=== PATIENT | female | born 1950 | race Caucasian/White ===

== ENCOUNTER 2017-04-09 05:50 | Outpatient (CLI) | payer MEDICARE ==
[~2017-04-09] VITALS: Ht 162.6 cm; Wt 52.6 kg
[2017-04-09] MEDS ORDERED: [UNRECOGNIZED DRUG - OTHER] VG (10:12)
[2017-04-09] MEDS ORDERED: WARF1TAB6 PO (10:12)
[2017-04-09] MEDS ORDERED: WARF6TAB6 PO (10:12)
[2017-04-09] MEDS ORDERED: CARV6.252 PO (10:12)
[2017-04-09] MEDS ORDERED: NITR0.4T39 SL (10:12)
[2017-04-09] MEDS ORDERED: EVOL140P SQ (10:12)
[2017-04-09] MEDS ORDERED: ASPI-586 PO (10:12)
[2017-04-09] MEDS ORDERED: LISI10TA2 PO (10:12)
[2017-04-09] MEDS ORDERED: RT-ALBUINH IH (10:12)
[2017-04-09] MEDS ORDERED: CALC-654 PO (10:12)
[2017-04-09] MEDS ORDERED: UBID50CA21 PO (10:12)
== END 2017-04-09 10:22 ==
LOC: PREOP 05:50
PROVIDERS: ATTEND Orthopaedic Surgery
DX: Z01.818 Encounter for other preprocedural examination (principal); M19.011 Primary osteoarthritis, right shoulder

== ENCOUNTER 2017-04-13 05:59 | Inpatient (IN) | payer MEDICARE ==
[~2017-04-13] VITALS: Ht 162.6 cm; Wt 52.6 kg
[2017-04-13] VITALS (8 sets, daily range): BP systolic 92–127; BP diastolic 48–83
[~2017-04-13 05:59] MED LIST: ASPI-586 PO; CALC-654 PO; CARV6.252 PO; EVOL140P SQ; LISI10TA2 PO; NITR0.4T39 SL; RT-ALBUINH IH; UBID50CA21 PO; WARF1TAB6 PO; WARF6TAB6 PO; [UNRECOGNIZED DRUG - OTHER] VG
[2017-04-13] MEDS ORDERED: ceFAZolin 2 GM/50 ML NS 50 ML ONE (06:27)
[2017-04-13] MEDS ORDERED: LACTATED RINGERS 1,000 ML IV PRN (06:32)
[2017-04-13] MEDS ORDERED: NEO/POLY/BACI (NEOSPORIN) OPHTH OINT 3.5 GM ONE (06:40)
[2017-04-13] MEDS ORDERED: BUPIVACAINE 0.25% 30 ML (SENSORCAINE) VIAL ONE (06:40)
[2017-04-13] MEDS ORDERED: NEO/POLY/BAC (NEOSPORIN) OINT 15 GM TUBE ONE (06:41)
[2017-04-13] MEDS ORDERED: GENTAMICIN 40 MG/ML 2 ML INJ SDV ONE (06:42)
[2017-04-13] MEDS ORDERED: ROPIVACAINE 5MG/ML 30ML VIAL ONE (06:56)
[2017-04-13] MEDS ORDERED: fentaNYL INJECTION 100 MCG/2 ML AMP ONE (06:58)
[2017-04-13] MEDS ORDERED: MIDAZOLAM 2 MG/2 ML (VERSED) VIAL ONE (06:58)
[2017-04-13 07:18] LABS: INR 1.1 (0.8-1.4); PROTHROMBIN TIME PATIENT 14.3 SEC (12.2-14.7)
[2017-04-13] MEDS ORDERED: ONDANSETRON 4 MG/2 ML (SDV) Z0FRAN IVP PRN ×2 (07:30→10:00)
[2017-04-13] MEDS ORDERED: KETOROLAC 15 MG/ML VIAL IVP PRN (07:30)
[2017-04-13] MEDS ORDERED: ceFAZolin 2 GM/NS 50 ML IV ONE (07:30)
[2017-04-13] MEDS ORDERED: diphenhydrAMINE 50 MG/ML INJ (BENADRYL) IV PRN (07:30)
[2017-04-13] MEDS ORDERED: BISACODYL 10 MG SUPP (DULCOLAX) PR PRN (07:30)
[2017-04-13] MEDS ORDERED: PROMETHAZINE INJ 25 MG/ML (PHENERGAN) AMP IVP PRN (07:30)
--- NOTE | 2017-04-13 07:46 | Progress Note-Pre Operative ---
Pre-Operative Progress Note H&P Reviewed The H&P was reviewed, patient examined and no changes noted. Date Seen by Provider: Apr 13, 2017 Time Seen by Provider: 07:45 Date H&P Reviewed: Apr 13, 2017 Time H&P Reviewed: 07:45 Pre-Operative Diagnosis: Chronic massive rotator cuff tear right shoulder DONI COOMBS DO Apr 13, 2017 7:46 am
[2017-04-13] MEDS ORDERED: LACTATED RINGERS 2,000 ML IV ONE (08:31)
[2017-04-13] MEDS ORDERED: PHENYLEPHRINE INJ 10 MG/ML (NEO-SYNEPHRINE 1%) ONE (08:31)
[2017-04-13] MEDS ORDERED: PHENYLEPHRINE 100 MCG/ML 10 ML (ANESTHESIA) SYR ONE (08:31)
[2017-04-13] MEDS ORDERED: ROCURONIUM 50 MG/5 ML (ZEMURON) VIAL IV ONE (08:31)
[2017-04-13] MEDS ORDERED: NS (IVPB) 250 ML ONE (08:31)
[2017-04-13] MEDS ORDERED: proPOfol 200 MG/20 ML (DIPRIVAN) VIAL IV ONE (08:31)
[2017-04-13] MEDS ORDERED: SEVOFLURANE (ULTANE) 15 ML INHAL SOLN ONE ×7 (08:31→09:44)
--- NOTE | 2017-04-13 09:35 | Progress Note-Post Operative ---
Post-Operative Progess Note Surgeon (s)/Nuclear Medicine Officer (s) Surgeon DONI COOMBS DO Nuclear Medicine Officer: Dennys White [employer] Pre-Operative Diagnosis Chronic massive rotator cuff tear right shoulder Post-Operative Diagnosis same Procedure & Operative Findings Date of Procedure 04/13/17 Procedure Performed/Findings Right Reverse Total Shoulder Arthroplasty Anesthesia Type General with interscalene block Estimated Blood Loss Estimated blood loss (mL): 200 ml Specimens/Packing Specimens Removed Humeral head not sent Packing: none DONI COOMBS DO Apr 13, 2017 9:35 am
[2017-04-13] MEDS ORDERED: morphine INJ 10 MG/ML 1ML (SYR OR VIAL) IVP PRN (10:00)
--- NOTE | 2017-04-13 10:03 | Anesthesia-Peripheral Nerve Bl ---
Procedure Start/Stop Time Date of Procedure: Apr 13, 2017 Start Time: 07:10 Stop Time: 07:22 Peripheral Nerve Block Peripheral Nerve Blockade Risk/Benefits/Alternatives discussed, including IV injection leading to complications or seizures, nerve irritation or damage, pneumothorax, total spinal anesthesia, injection, and/or bleeding. Approach: Right ISB Side Confirmed: RIGHT Indication: Req Pain Mgmt by Surgeon Specifically requested for management of pain by:Dr. Leiws Patient Condition Vital Signs Vital Signs Date Time Temp Pulse Resp B/P (MAP) Pulse Ox O2 Delivery O2 Flow Rate FiO2 04/13/17 06:41 97.5 70 16 127/83 98 Room Air Patient Condition: Sedate/contact maintained Procedure Prepartation: Chlorhexidine Position: Supine Chestnut: Short-bevel Needle (s) Size: 22g 2" Technique: Ultrasound Sedation Given: Fentanyl (50 mcg), Midazolam (2mg) Injectate: ropivacaine Concentration %: 0.5 Volume (ml): 30 Epinephrine used: No Narrative Injection was made incrementally with constant monitoring. Aspiration every (mls): 5 Blood Aspirated: No Pain on injection noted: No Normal Resistance on injection: Yes Events Events: None:easy well tolerated Sucess: Complete Patient Conditon Post Peripheral Nerve Block Post Peripheral Nerve Block Vital Signs: Blood Pressure: Systolic Diastolic Heart Rate Blood Pressure Systolic: 127 Blood Pressure Diastolic: 83 Pulse Rate (adult): 70 JESS CALDERON CRNA Apr 13, 2017 10:03
--- NOTE | 2017-04-13 12:08 | Diagnostic Imaging Report ---
INDICATION: Osteoarthritis. 2 views were obtained. Findings: There are post surgical change of a right shoulder reverse arthroplasty. Hardware is in satisfactory position. Right lung is clear. IMPRESSION: Stable post surgical changes of a right shoulder reverse arthroplasty. Dictated by: Dictated on workstation # [id number]
[2017-04-13] MEDS: D5 1/2 NS 1000 ML IV SOLUTION 1,000 ML IV SCH (12:23)
[2017-04-13] MEDS ORDERED: UBID100C44 PO (14:21)
[2017-04-13] MEDS ORDERED: CALC-712 PO (14:21)
[2017-04-13] MEDS ORDERED: ALBU18HF2 IH (14:21)
[2017-04-13] MEDS ORDERED: MELA1TAB27 PO (14:21)
[2017-04-13] MEDS: ceFAZolin 2 GM/50 ML NS 50 ML IV SCH ×2 (15:02→23:43)
--- NOTE | 2017-04-13 15:29 | Physical Therapy Progress Note ---
Therapy Progress Note Patient had a block and is unable to feel her right UE. PT to begin in a.m. PT and patient discussed plan to perform pendulum exercises only and AROM right elbow, hand and wrist. Patient voices understanding. 1 visit DEYA DINERO PT Apr 13, 2017 15:29
[2017-04-13] MEDS: HYDROcodone/APAP 10 MG/325 MG (LORTAB) TAB PO PRN ×2 (18:42→22:42)
[2017-04-13] MEDS ORDERED: NITROGLYCERIN SUBLINGUAL 0.4 MG TAB (NITROSTAT) SL PRN (18:45)
[2017-04-13] MEDS ORDERED: RT-ALBUTEROL SULF 2.5 MG/3 ML PRE-MIX VIAL IH PRN (19:00)
[2017-04-13] MEDS: warFARin 2 MG (COUMADIN) TAB PO SCH (19:11)
[2017-04-13] MEDS: warFARin 5 MG (COUMADIN) TAB PO SCH (19:11)
[2017-04-13] MEDS: morphine INJ 10 MG/ML 1ML (SYR OR VIAL) IVP PRN ×2 (20:05→21:32)
[2017-04-13] MEDS: ENOXAPARIN 40 MG/0.4 ML (LOVENOX) SYR SC SCH (20:07)
[2017-04-13] MEDS: CARVEDILOL 6.25 MG (COREG) TAB PO SCH (21:33)
[2017-04-14] VITALS: BP 103/59
[2017-04-14] MEDS: morphine INJ 10 MG/ML 1ML (SYR OR VIAL) IVP PRN (01:09)
[2017-04-14] MEDS: D5 1/2 NS 1000 ML IV SOLUTION 1,000 ML IV SCH (01:34)
[2017-04-14] MEDS: HYDROcodone/APAP 10 MG/325 MG (LORTAB) TAB PO PRN ×4 (03:47→23:30)
[2017-04-14 04:00] VITALS: BP 109/60
[2017-04-14 04:02] LABS: MEAN PLATELET VOLUME 12.6 FL (7.4-10.4); RED BLOOD COUNT 3.85 10^6/uL (4.35-5.85); RED CELL DISTRIBUTION WIDTH 14.9 % (10.0-14.5); WHITE BLOOD COUNT 9.4 10^3/uL (4.3-11.0)
[2017-04-14 04:36] LABS: INR 1.1 (0.8-1.4); PROTHROMBIN TIME PATIENT 13.7 SEC (12.2-14.7)
[2017-04-14 05:17] LABS: ALANINE AMINOTRANSFERASE 12 U/L (0-55); ALBUMIN 3.5 GM/DL (3.2-4.5); ANION GAP 7 MMOL/L (5-14); ASPARTATE AMINO TRANSFERASE 15 U/L (5-34); BILIRUBIN,TOTAL 0.7 MG/DL (0.1-1.0); BLOOD UREA NITROGEN 14 MG/DL (7-18); BUN/CREATININE RATIO 20; CALCIUM 8.1 MG/DL (8.5-10.1); CARBON DIOXIDE 21 MMOL/L (21-32); CHLORIDE 106 MMOL/L (98-107); CREATININE SERUM 0.69 MG/DL (0.60-1.30); GFR ESTIMATED > 60; GLUCOSE 178 MG/DL (70-105); POTASSIUM 4.3 MMOL/L (3.6-5.0); SODIUM 134 MMOL/L (135-145); TOTAL PROTEIN 5.3 GM/DL (6.4-8.2)
--- NOTE | 2017-04-14 07:58 | Progress Note (SOAP) ---
Subjective Date Seen by Provider: Apr 14, 2017 Time Seen by Provider: 07:55 Subjective/Events-last exam No complaints, pain currently controlled. Pt currently in ICU due to lack of floor beds. She is resting without complaints. States she hasn't been up much. Objective Exam Vital Signs Date Time Temp Pulse Resp B/P (MAP) Pulse Ox O2 Delivery O2 Flow Rate FiO2 04/14/17 04:00 99.2 69 16 109/60 94 Room Air 04/14/17 00:00 96.8 69 20 103/59 94 Room Air 04/13/17 21:43 93 Room Air 04/13/17 21:00 103/64 04/13/17 20:00 98.6 70 18 92/48 93 Room Air 04/13/17 15:00 97.9 70 16 112/69 98 Room Air 04/13/17 14:36 70 110/69 98 Room Air 04/13/17 13:00 70 124/79 98 Room Air 04/13/17 12:00 70 123/70 98 Room Air 04/13/17 11:00 97.4 70 12 125/80 100 Room Air 04/13/17 11:00 Room Air I & O 04/14/17 07:00 Intake Total 2042 ml Output Total 1000 ml Balance 1042 ml Capillary Refill : General Appearance: No Apparent Distress Respiratory: Lungs Clear, Normal Breath Sounds Cardiovascular: Regular Rate, Rhythm, Normal Peripheral Pulses Peripheral Pulses: 2+ Radial Pulses (R) Gastrointestinal: soft Extremity: Normal Capillary Refill, Normal Inspection, No Calf Tenderness, No Pedal Edema, Other (Mild swelling right arm, elbow is stiff and painful with passive rom) Neurologic/Psychiatric: Alert, Oriented x3, No Motor/Sensory Deficits, Normal Mood/Affect, gis engineer II-XII Norm as Tested Skin: Normal Color, Warm/Dry Results Lab Laboratory Tests 04/14/17 03:52: White Blood Count 9.4, Red Blood Count 3.85L, Hemoglobin 11.5, Hematocrit 35, Mean Corpuscular Volume 92, Mean Corpuscular Hemoglobin 30, Mean Corpuscular Hemoglobin Concent 33, Red Cell Distribution Width 14.9H, Platelet Count 166, Mean Platelet Volume 12.6H, Prothrombin Time 13.7, INR Comment 1.1, Sodium Level 134L, Potassium Level 4.3, Chloride Level 106, Carbon Dioxide Level 21, Anion Gap 7, Blood Urea Nitrogen 14, Creatinine 0.69, Estimat Glomerular Filtration Rate > 60, BUN/Creatinine Ratio 20, Glucose Level 178H, Calcium Level 8.1L, Total Bilirubin 0.7, Aspartate Amino Transf (AST/SGOT) 15, Alanine Aminotransferase (ALT/SGPT) 12, Alkaline Phosphatase 40, Total Protein 5.3L, Albumin 3.5 Assessment/Plan Assessment/Plan Assess & Plan/Chief Complaint A: S/P RIGHT REVERSE TSA FULL THICKNESS RECURRENT ROTATOR CUFF TENDON TEAR RIGHT SHOULDER (CHRONIC) ROTATOR CUFF ARTHROPATHY R SHOULDER PRIMARY OA RIGHT SHOULDER P: CONTINUE CURRENT TREATMENT, DC IVF WHEN ANCEF IS FINISHED. UP AD ALEXUS, FREQUENT ROM OF ELBOW WRIST AND HAND TO PREVENT STIFFNESS. PLAN TO DC TO HOME TOMORROW Clinical Quality Measures DVT/VTE Risk/Contraindication: Risk Factor Score Per Nursin RFS Level Per Nursing on Admit: 4+=Very High CHRISTOS VILLEDA APRN Apr 14, 2017 7:58 am
[2017-04-14 08:08] VITALS: BP 123/90
[2017-04-14] MEDS: ASPIRIN 81 MG CHEW (CHILDREN'S ASA) PO SCH (08:37)
[2017-04-14] MEDS: SENNA W/DOCUSATE (SENOKOT S) TABLET PO SCH ×2 (08:37→20:07)
[2017-04-14] MEDS: CARVEDILOL 6.25 MG (COREG) TAB PO SCH ×2 (08:37→20:07)
--- NOTE | 2017-04-14 10:52 | Physical Therapy Ortho Eval ---
PT Orthopedic Evaluation Type of Surgery Right TSA reverse Prior Level of Function Current Living Status: Spouse Locomotion (Upon Admit): Independent Subjective Subjective Reports she had a RCR a year ago. Agrees to therapy this date. Entry Into Home: Stairs With Railing Objective Objective Left UE and B LE ROM and strength is WNL Motor Control Motor Control: Motor Control WNL ROM ROM: WFL, except focal deficit see above; no A/PROM Right UE Strength Strength: WFL No active movement allowed of right UE at this time. Transfer Pt able to transfer out of chair without assist and got into bed without assist. Gait Location Restriction: R UE (No ROM at this time; passive pendulums only) Gait (FIM): 5 Distance (FIM): 3=150 ft Summary/Comments Gait without AD >200 ft with SBA. Right UE in sling. Treatment Rendered Treatment: Reviewed Precautions Exercise Instruction: Karenladarius's Performed pendulums R UE with education on no active movement of the right shoulder at this time and use of sling when up moving around. Educated pt she can move her hand wrist and elbow. Pt verbalized understanding. Assessment/Goals Goal Time Frame: Understands HEP: Yes Safe Ambulation: Yes Will see patient an additional 2-3 visits to manage pendulum performance and address questions or concerns. Plan Treatment Plan: Education, Gait, Therapeutic Exercise Treatment Duration: 3 days Visits Per Week: 5-7 PT/Family Agrees to Plan: Yes Time Time In: 930 Time Out: 1000 Total Billed Treatment Time: 30 Billed Treatment Time visit EVL 15 EX 15 YOBANY LEE PT Apr 14, 2017 10:52
--- NOTE | 2017-04-14 11:02 | Consultation-Hospitalist ---
HPI History of Present Illness: HPI/Chief Complaint CC: s/p Right shoulder replacement uncomplicated per Dr Lewis HPI: This is a 66 yoWF pt who presented following a right shoulder replacement that was uncomplicated. Vitals remain stable. Repeat labs today are stable and restarted on Coumadin. Patient Interview: Pt denies restarting Coumadin yet but was informed that this will start soon Pt confirms seeing Dr. Alicia in [facility] as PCP. Pt confirms director it as Dr. Porter Pt denies smoking and not much ETOH Pt states that she worked in [employer]. Pt then worked in [employer]. Pt states that her sister will help take care of her at home when she DCs Physical exam stable. Lungs sound perfect Pt confirms starting blood thinner for irregular heart beat in 2010 Pt states that she has not eaten much and is not sure if she needs more BM meds Scribed by Sara Salazar under the direct supervision of Dr. Peck. Source: patient Exam Limitations: no limitations Date Seen 04/14/17 Attending Physician Twan Lewis DO PCP No,Local Physician Referring Physician Date of Admission Apr 13, 2017 at 05:59 Home Medications & Allergies Home Medications Reviewed patient Home Medication Reconciliation Form Allergies Allergies Coded Allergies amiodarone (Verified Allergy, Unknown, HIVES, 04/09/17) atorvastatin (Verified Allergy, Unknown, leg pain, 04/09/17) colestipol (Verified Allergy, Unknown, leg pain, 04/09/17) simvastatin (Verified Allergy, Unknown, leg pain, 04/09/17) Past Hjrxbwm-Ncsgfo-Wrjygv Hx Patient Social History Marrital Status: single 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) Alcohol Use: Denies Use Recreational Drug Use: No Smoking Status: Former Smoker Physical Abuse Screen: No Sexual Abuse: No Recent Foreign Travel: No Contact w/other who traveled: No Recent Hopitalizations: No Recent Infectious Disease Expo: No Immunizations Up To Date Date of Pneumonia Vaccine: May 10, 2016 Seasonal Allergies Seasonal Allergies: No Surgeries HX Surgeries: Yes Surgeries: Orthopedic Respiratory Hx Respiratory Disorders: No Cardiovascular Hx Cardiovascular Disorders: Yes Cardiac Disorders: Atrial Fibrillation, High Cholesterol, Hypertension Neurological Hx Neurological Disorders: No Reproductive System : No Gastrointestinal Hx Gastrointestinal Disorders: No Musculoskeletal Hx Musculoskeletal Disorders: Yes Musculoskeletal Disorders: Arthritis Endocrine Hx Endocrine Disorders: No HEENT HX ENT Disorders: No Cancer Hx Cancer: No Psychosocial Hx Psychiatric Problems: No Integumentary HX Skin/Integumentary Disorder: No Reviewed Nursing Assessment Reviewed/Agree w Nursing PMH: No Family Medical History Family Hx: Abdominal aortic aneurysm G8 BROTHER Alzheimer's disease 19 MOTHER Arthritis G8 BROTHER G8 SISTER Cardiovascular disease 19 FATHER G8 SISTER Myocardial infarction 19 FATHER G8 BROTHER Seizure disorder G8 BROTHER G8 SISTER Review of Systems Constitutional: see HPI EENTM: no symptoms reported Respiratory: no symptoms reported Cardiovascular: no symptoms reported Gastrointestinal: no symptoms reported Genitourinary: no symptoms reported Musculoskeletal: joint pain Skin: no symptoms reported Psychiatric/Neurological: No Symptoms Reported All Other Systems Reviewed Negative Unless Noted: Yes Physical Exam Physical Exam Vital Signs Vital Sign - Last 12Hours 04/13/17 06:41 Temp 97.5 Pulse 70 Resp 16 B/P (MAP) 127/83 Pulse Ox 98 O2 Delivery Room Air Capillary Refill : General Appearance: No Apparent Distress, WD/WN Eyes: Bilateral Eye Normal Inspection, Bilateral Eye PERRL HEENT: PERRL/EOMI, Normal ENT Inspection, Pharynx Normal Neck: Full Range of Motion, Normal Inspection, Non Tender, Supple, Carotid Bruit Respiratory: Chest Non Tender, Lungs Clear, Normal Breath Sounds, No Accessory Muscle Use, No Respiratory Distress Cardiovascular: Regular Rate, Rhythm, No Edema, No Gallop, No JVD, No Murmur, Normal Peripheral Pulses Gastrointestinal: Normal Bowel Sounds, No Organomegaly, No Pulsatile Mass, Non Tender, Soft Back: Normal Inspection, No CVA Tenderness, No Vertebral Tenderness Extremity: Normal Capillary Refill, Normal Inspection, Normal Range of Motion ( except right arm), Non Tender, No Calf Tenderness, No Pedal Edema Neurologic/Psychiatric: Alert, Oriented x3, No Motor/Sensory Deficits, Normal Mood/Affect Skin: Normal Color, Warm/Dry Lymphatic: No Adenopathy Results Results/Procedures Lab Laboratory Tests 04/14/17 03:52 Assessment/Plan Admission Diagnosis Assessment: s/p uncomplicated right shoulder replacement surgery uncomplicated by Dr Lewis POD # 1 PAF Coumadin for CVA prophylaxis HTN Assessment and Plan Plan: Maintain on Coumadin for CVA Px due to AF Monitor pt closely PT/OT Home meds Clinical Quality Measures DVT/VTE Risk/Contraindication: Risk Factor Score Per Nursin RFS Level Per Nursing on Admit: 4+=Very High GREY PECK DO Apr 14, 2017 11:02
--- NOTE | 2017-04-14 11:19 | Anesthesia-General Post-Op ---
General Patient Condition Mental Status/LOC: Same as Preop Cardiovascular: Satisfactory Nausea/Vomiting: Absent Respiratory: Satisfactory Pain: Controlled Complications: Absent Post Op Complications Complications None Follow Up Care/Instructions Patient Instructions None needed. Anesthesia/Patient Condition Patient Condition Patient is doing well, no complaints, stable vital signs, no apparent adverse anesthesia problems. No complications reported per nursing. No complications from ISB JESS CALDERON CRNA Apr 14, 2017 11:19
[2017-04-14 11:49] VITALS: BP 114/71
[2017-04-14] MEDS ORDERED: lisINopril 10 MG (PRINIVIL) TAB PO SCH (12:00)
--- NOTE | 2017-04-14 12:08 | OPERATIVE REPORT ---
PROCEDURE PHYSICIAN: DONI COOMBS DATE OF PROCEDURE: 04/13/2017 DICTATING PHYSICIAN: Dr. Doni Coombs DO PREOPERATIVE DIAGNOSIS: Chronic massive rotator cuff tendon tear, right shoulder. POSTOPERATIVE DIAGNOSIS; Chronic massive rotator cuff tendon tear, right shoulder. PROCEDURE: Reverse right total shoulder arthroplasty. SURGEON: Debbie HILLVENDING MANAGER: GYPSY Kidd, surgical operating room assistant was utilized throughout the entire procedure for patient positioning, retraction of soft tissues, placement of metallic implants, wound closure, dressing application and patient transfer. ANESTHESIA: General with interscalene block. INDICATIONS AND FINDINGS: The patient is a 66-year-old female seen with chief complaint of progressive pain, loss of motion, and weakness in the right shoulder. The patient had undergone a previous massive rotator cuff tendon repair. She followed instructions following her surgery, limiting activity to her shoulder and was placed in aggressive formal physical therapy after satisfactory period of healing. She continued to demonstrate persistent weakness and persistent, loss of active range of motion and a repeat MRI evaluation of her shoulder revealed a recurrent tear with significant retraction of the rotator cuff tendon. With this in mind, the patient was taken to surgery where a reverse total shoulder arthroplasty was performed on the right utilizing the Arthrex system with a size 10 Arthrex Univers reverse press-fit humeral stem. A medium-sized Arthrex Univers glenoid base plate, a 39 + 4 lateralized Arthrex glenosphere. A 39 + 3 humeral insert. A 15 mm x 6.5 mm central nonlocking screw, along with a 30 mm peripheral locking screw placed superiorly and inferiorly. The procedure was performed without complication. PROCEDURE IN DETAIL: The patient was seen by anesthesia preoperatively and under ultrasound guidance an interscalene block was performed on the right to decrease postop pain and decrease the amount of medication required during the surgical procedure. The patient was transported the operating room, where a general inhalation anesthetic was administered. The patient was positioned on the operating table with the head positioner and placed in a beach chair position. A ChloraPrep and sterile drape of the right shoulder and right upper extremity was performed. A deltopectoral incision was made over the anterior surface of the right shoulder. The incision was deepened. The deltopectoral interval was identified. The cephalic vein was retracted medially and the deltoid musculature was retracted laterally. The superior 1 cm pectoralis major tendon was released. A small portion of the conjoined tendon insertion of the coracoid was released with electrocautery. The subscapularis tendon was noted to be intact. This was divided obliquely along the margins, articular cartilage and reflected from the humeral head. The shoulder was externally rotated extended and dislocated. There was a tear through the rotator cuff tendon was identified superiorly. An oscillating saw was then used to resect the humeral head. Anchors remained embedded in the tuberosity. The laterally these were removed including the these sutures attached to them. Retractors were placed. The acetabular labrum was excised. A central hole was identified in the glenoid. Utilizing a medium guide, a drill pin was then placed, this was overreamed. The surface of the glenoid was then reamed as well. A base plate was impacted into position. Through a drill guide the 30 mm locking screw was placed superiorly. A 15 mm x 6.5 mm nonlocking central screw was placed and then through a drill guide the inferior locking hole was then drilled an additional 30 mm screw was placed. Attention was directed back to the proximal humerus that had been protected with a humeral protector throughout the placement of the glenoid implant. The proximal humerus was opened with the canal finder and then reamed by hand up to a diameter of 10 mm. The proximal humerus was then broached up to 10 mm. That posterior offset was inserted in the broach and the proximal humerus was reamed. Following this, the shoulder was irrigated extensively with normal saline solution. The glenosphere was inserted in the proximal humerus. The arm was eventually rotated 18 degrees into the baseplate and this was then impacted into position. Traction was applied to this and it remained stable. The humeral insert and the stem were then constructed and the stem was impacted into position in the humerus. A trial was placed. The shoulder was reduced and found to be stable. The shoulder was then dislocated again, the polyethylene cup was then impacted into the humeral construct. The shoulder was reduced, taken through range of motion and found to be stable. The subscapularis tendon was then repaired utilizing multiple interrupted [id number] number 2 Tycron. The deltopectoral interval was closed with a running suture of number 1 Polysorb. Subcutaneous tissues were closed with 2-0 Vicryl suture and the skin was closed with horizontal mattress sutures of 3-0 nylon. An Adaptic Neosporin bulky dressing was placed about the right shoulder. The arm was placed in a sling. The patient was awakened and was transported postop recovery with anesthesia personnel present in satisfactory condition. Job ID: [id number] Dictated Date: 04/13/2017 10:38:09 Post Acute Care Nurse Date: 04/14/2017 11:42:43 / yina
--- NOTE | 2017-04-14 16:35 | Physical Therapy Daily Note ---
PT Daily Note-Current Subjective Agrees to PT. Pt confused as to the day it is today. pt is convinced today is (it is Wednesday.) Transfers Functional [place] Measure 0=Not Assessed/NA 4=Minimal Assistance 1=Total Assistance 5=Supervision or Setup 2=Maximal Assistance 6=Modified [place] 3=Moderate Assistance 7=Complete IndependenceIRFPAI Quality Coding Scale 6 Independent with activity with or without an assistive device 5 Patient requires set up or clean up by helper. Patient completes activity by themselves 4 Supervision or touching assist (CGA). [place] provide cues , steadying assist 3 The helper provides less than half the effort to complete the activity 2 The helper provides more than half the effort to complete the activity 1 Dependent. The helper does all the effort to complete an activity 7 Patient refused to complete or attempt activity 9 The patient did not perform the activity before the current illness or injury 88 Not attempted due to Medical conditions or safety concerns Treatments Reoriented pt to the day of the week that it is. she was sleeping heavily when this therapist entered so that may be the reason of her confusion. Pt was able to get out of bed without assist. Pt ambulated x 250 ft without AD or assist, with sling in place. Pt stood at counter and performed pendulum exercises with review and education for the movement to be passive. Pt up in chair post treatment with polar pack applied and needs met. Notified nursing of patients confusion as to the date and difficulty reorienting her. Assessment Current Status: Good Progress Safe mobility and able to complete pendulum exercise without cues. PT Plan Problem List Problem List: Activity Tolerance, Functional Strength, Gait, ROM Treatment/Plan Treatment Plan: Continue Plan of Care Treatment Plan: Education, Gait, Therapeutic Exercise Treatment Duration: Apr 16, 2017 Frequency: 5 times per week Estimated Hrs Per Day: .5 hour per day Patient and/or Family Agrees t: Yes Safety Risks/Education Teaching Recipient: Patient Teaching Methods: Demonstration, Discussion Review of pendulum exer Time/GCodes Time In: 1550 Time Out: 1613 Total Billed Treatment Time: 23 Total Billed Treatment visit GT 15 EX 8 YOBANY LEE PT Apr 14, 2017 16:35
[2017-04-14 16:38] VITALS: BP 118/79
[2017-04-14] MEDS: warFARin 2 MG (COUMADIN) TAB PO SCH (18:17)
[2017-04-14] MEDS: warFARin 5 MG (COUMADIN) TAB PO SCH (18:17)
[2017-04-14 20:00] VITALS: BP 110/58
[2017-04-14] MEDS: ENOXAPARIN 40 MG/0.4 ML (LOVENOX) SYR SC SCH (20:07)
[2017-04-15] VITALS: BP 112/64
[2017-04-15 04:00] VITALS: BP 120/78
[2017-04-15 04:15] LABS: MEAN PLATELET VOLUME 13.3 FL (7.4-10.4); RED BLOOD COUNT 3.83 10^6/uL (4.35-5.85); WHITE BLOOD COUNT 8.4 10^3/uL (4.3-11.0)
[2017-04-15 04:22] LABS: INR 1.4 (0.8-1.4); PROTHROMBIN TIME PATIENT 16.8 SEC (12.2-14.7)
[2017-04-15 04:32] LABS: ANION GAP 10 MMOL/L (5-14); BLOOD UREA NITROGEN 11 MG/DL (7-18); BUN/CREATININE RATIO 18; CALCIUM 8.8 MG/DL (8.5-10.1); CARBON DIOXIDE 19 MMOL/L (21-32); CHLORIDE 107 MMOL/L (98-107); GFR ESTIMATED > 60; GLUCOSE 113 MG/DL (70-105); POTASSIUM 4.2 MMOL/L (3.6-5.0); SODIUM 136 MMOL/L (135-145)
[2017-04-15] MEDS ORDERED: SENN-20 PO (06:54)
[2017-04-15] MEDS ORDERED: HYDR-3820 PO (06:54)
--- NOTE | 2017-04-15 07:00 | Discharge Inst-Simple/Standard ---
Discharge Inst-Standard Discharge Medications New, Converted or Re-Newed RX: RX on Chart Patient Instructions/Follow Up Plan of Care/Instructions/FU: f/u with Dr. Lewis in 7 days to remove judy Please refer to Dr. Lewis's total shoulder DC instructions for more info Activity as Tolerated: No Discharge Diet: No Restrictions Return to The Hospital For: call Dr. Marquez office with any concerns or questions CHRISTOS VILLEDA APRN Apr 15, 2017 7:00 am
--- NOTE | 2017-04-15 07:04 | Progress Note (SOAP) ---
Subjective Date Seen by Provider: Apr 15, 2017 Time Seen by Provider: 07:03 Subjective/Events-last exam No complaints. pain controlled. States she is ready for discharge Objective Exam Vital Signs Date Time Temp Pulse Resp B/P (MAP) Pulse Ox O2 Delivery O2 Flow Rate FiO2 04/15/17 04:00 98.8 70 16 120/78 95 Room Air 04/15/17 00:00 97.9 68 16 112/64 95 Room Air 04/14/17 21:00 92 Room Air 04/14/17 20:00 98.8 72 20 110/58 95 Room Air 04/14/17 16:38 98.2 70 16 118/79 97 Room Air 04/14/17 11:49 98.0 68 16 114/71 94 Room Air 04/14/17 09:10 92 Room Air 04/14/17 08:08 98.8 66 16 123/90 92 Room Air I & O 04/15/17 06:59 Intake Total 1280 ml Output Total 1500 ml Balance -220 ml Capillary Refill : General Appearance: No Apparent Distress HEENT: PERRL/EOMI Neck: Non Tender Respiratory: Chest Non Tender, Lungs Clear, Normal Breath Sounds Cardiovascular: Regular Rate, Rhythm Peripheral Pulses: 2+ Radial Pulses (R), 2+ Radial Pulses (L) Gastrointestinal: non tender, soft Extremity: Normal Capillary Refill, Normal Inspection, Non Tender, No Calf Tenderness, No Pedal Edema, Other (dressing to right shoulder CDI) Neurologic/Psychiatric: Alert, Oriented x3, No Motor/Sensory Deficits, Normal Mood/Affect Skin: Normal Color, Warm/Dry Results Lab Laboratory Tests 04/15/17 03:50: White Blood Count 8.4, Red Blood Count 3.83L, Hemoglobin 11.3L, Hematocrit 35, Mean Corpuscular Volume 92, Mean Corpuscular Hemoglobin 30, Mean Corpuscular Hemoglobin Concent 32, Red Cell Distribution Width 15.0H, Platelet Count 159, Mean Platelet Volume 13.3H, Prothrombin Time 16.8H, INR Comment 1.4, Sodium Level 136, Potassium Level 4.2, Chloride Level 107, Carbon Dioxide Level 19L, Anion Gap 10, Blood Urea Nitrogen 11, Creatinine 0.60, Estimat Glomerular Filtration Rate > 60, BUN/Creatinine Ratio 18, Glucose Level 113H, Calcium Level 8.8 Microbiology 04/13/17 MRSA Screen - Final, Complete MRSA not isolated Assessment/Plan Assessment/Plan Assess & Plan/Chief Complaint A: S/P RIGHT REVERSE TSA FULL THICKNESS RECURRENT ROTATOR CUFF TENDON TEAR RIGHT SHOULDER (CHRONIC) ROTATOR CUFF ARTHROPATHY R SHOULDER PRIMARY OA RIGHT SHOULDER P: DC to home, f/u in 7 days, scrips on chart for norco and ducosate Clinical Quality Measures DVT/VTE Risk/Contraindication: Risk Factor Score Per Nursin RFS Level Per Nursing on Admit: 4+=Very High CHRISTOS VILLEDA [employer] EXAMINER Apr 15, 2017 07:04
[2017-04-15 08:00] VITALS: BP 103/75
[2017-04-15] MEDS: CARVEDILOL 6.25 MG (COREG) TAB PO SCH (08:03)
[2017-04-15] MEDS: SENNA W/DOCUSATE (SENOKOT S) TABLET PO SCH (08:03)
[2017-04-15] MEDS: ASPIRIN 81 MG CHEW (CHILDREN'S ASA) PO SCH (08:04)
[2017-04-15] MEDS: HYDROcodone/APAP 10 MG/325 MG (LORTAB) TAB PO PRN (09:17)
== END 2017-04-15 09:25 | disposition home or self-care (01) | DRG 483 ==
LOC: 4TH 05:59 → SURG 06:00 → ICU 10:57 → ENPENDDIS 04-15 08:00
PROVIDERS: ADMIT Orthopaedic Surgery; ATTEND Orthopaedic Surgery
PROC: 3E0T3BZ Introduction of Anesthetic Agent into Peripheral Nerves and Plexi, Percutaneous Approach (ICD-10-PCS; 2017-04-13)
PROC: 0RRJ00Z Replacement of Right Shoulder Joint with Reverse Ball and Socket Synthetic Substitute, Open Approach (ICD-10-PCS; principal; 2017-04-13 07:52)
DX: M75.101 Unspecified rotator cuff tear or rupture of right shoulder, not specified as traumatic (principal); M19.011 Primary osteoarthritis, right shoulder; J44.9 Chronic obstructive pulmonary disease, unspecified; E78.00 Pure hypercholesterolemia, unspecified; I25.2 Old myocardial infarction; Z95.0 Presence of cardiac pacemaker; I48.0 Paroxysmal atrial fibrillation; I10 Essential (primary) hypertension; Z87.891 Personal history of nicotine dependence; Z79.01 Long term (current) use of anticoagulants
CPT/HCPCS: 36415; 73030; 80048; 80053; 85027; 85610; 85730; 86850; 86900; 86901; 87081; 94664

== ENCOUNTER 2017-04-16 18:58 | Emergency (ER) | payer MEDICARE ==
[~2017-04-16] VITALS: Ht 162.6 cm; Wt 52.6 kg
[~2017-04-16 18:58] MED LIST changes: +ALBU18HF2 IH; +CALC-712 PO; +HYDR-3820 PO; +MELA1TAB27 PO; +SENN-20 PO; +UBID100C44 PO
[2017-04-16 19:44] LABS: BASOPHILS % (AUTO) 0 % (0-10); EOSINOPHILS # (AUTO) 0.1 10^3/uL (0.0-0.3); EOSINOPHILS % (AUTO) 2 % (0-10); LYMPHOCYTES # (AUTO) 1.8 X 10^3 (1.0-4.0); LYMPHOCYTES % (AUTO) 24 % (12-44); MEAN CORPUSCULAR HEMOGLOBIN 30 PG (25-34); MEAN CORPUSCULAR HGB CONC 33 G/DL (32-36); MEAN CORPUSCULAR VOLUME 93 FL (80-99); MEAN PLATELET VOLUME 12.4 FL (7.4-10.4); MONOCYTES # (AUTO) 0.6 X 10^3 (0.0-1.0); MONOCYTES % (AUTO) 8 % (0-12); NEUTROPHILS % (AUTO) 66 % (42-75); PLATELET COUNT 191 10^3/uL (130-400); RED BLOOD COUNT 3.71 10^6/uL (4.35-5.85); RED CELL DISTRIBUTION WIDTH 15.2 % (10.0-14.5); WHITE BLOOD COUNT 7.5 10^3/uL (4.3-11.0)
[2017-04-16 19:54] LABS: INR 1.5 (0.8-1.4); PROTHROMBIN TIME PATIENT 17.5 SEC (12.2-14.7)
[2017-04-16 19:58] LABS: ANION GAP 9 MMOL/L (5-14); BLOOD UREA NITROGEN 16 MG/DL (7-18); BUN/CREATININE RATIO 22; CALCIUM 9.3 MG/DL (8.5-10.1); CARBON DIOXIDE 27 MMOL/L (21-32); CHLORIDE 106 MMOL/L (98-107); CREATININE SERUM 0.72 MG/DL (0.60-1.30); GFR ESTIMATED > 60; GLUCOSE 137 MG/DL (70-105); POTASSIUM 3.8 MMOL/L (3.6-5.0); SODIUM 142 MMOL/L (135-145)
--- NOTE | 2017-04-16 20:33 | Diagnostic Imaging Report ---
INDICATION: Right arm swelling. EXAMINATION: Right arm venous Doppler study was performed in the routine fashion with color flow Doppler and waveform analysis. FINDINGS: The right internal jugular vein, right subclavian vein and right axillary vein are patent and compressible. The right brachial and basilic veins are patent. The radial vein is patent. Cephalic vein is patent. Ulnar vein could not be visualized. IMPRESSION: No evidence of deep vein thrombosis in the major veins of the right upper extremity. Dictated by: Dictated on workstation # [id number]
--- NOTE | 2017-04-16 20:35 | ED Upper Extremity ---
General Chief Complaint: Upper Extremity Stated Complaint: SWELLING Nursing Triage Note: Here for evaluation of right arm/hand swelling after post op surgery Wednesday reverse total shoulder repair. Pt had stopped Warfarin 5 days prior to OR then was started back on meds about Wed. Called [facility] and was recommended for eval with ultrasound Nursing Sepsis Screen: No Definite Risk Source: patient History of Present Illness Time seen by provider: 19:20 Initial Comments PT HAD RIGHT REVERSE TOTAL SHOULDER REPLACEMENT SURGERY BY DR. COOMBS AND WAS RELEASED 04/15/17 HAS HAD SWELLING TO RIGHT ARM SINCE SURGERY, AND IT CONTINUES STATES SWELLING IS ALOT BETTER IN THE MORNINGS, BUT INCREASES THE DAY GOES ON PT HAS BEEN WEARING A SLING ALL THE TIME HAS SLIGHT NUMBNESS AND TINGLING TO FINGERS PT HAS BEEN ON COUMADIN FOR CHRONIC ATRIAL FIBRILLATION, AND IT WAS STOPPED FOR 5 DAYS, AND RESTARTED ON Wednesday04/14/17 NO CHEST PAIN, SHORTNESS OF BREATH OR PALPITATIONS NO FEVER NO DRAINAGE FROM WOUND NO INCREASED PAIN IN ARM CALLED DR AGGARWAL, VESSEL WELDER FOR [facility] AND WAS TOLD TO COME HERE FOR AN ULTRASOUND. PT IS RIGHT HANDED PCP: DR. ELLIS [place] ORTHOPEDIC SURGEON: DR. COOMBS Allergies and Home Medications Allergies Coded Allergies: amiodarone (Verified Allergy, Unknown, HIVES, 04/09/17) atorvastatin (Verified Allergy, Unknown, leg pain, 04/09/17) colestipol (Verified Allergy, Unknown, leg pain, 04/09/17) simvastatin (Verified Allergy, Unknown, leg pain, 04/09/17) Home Medications Albuterol Sulfate 18 Gm Hfa.aer.ad, 2 PUFF IH Q6H PRN for SHORTNESS OF BREATH, ( Reported) Aspirin Unknown Strength Tablet., Unknown Dose PO DAILY, (Reported) Calc/D3/Mag/Zn/Detacker/Reggie/[place] 1 Each Tablet, 1 TAB PO TID, (Reported) Carvedilol 6.25 Mg Tablet, 6.25 MG PO BID, (Reported) Evolocumab 140 Mg/1 Ml Pen.injctr, 140 MG SQ every 2 weeks, (Reported) Hydrocodone/Acetaminophen 1 Each Tablet, 1 EA PO Q4H PRN for PAIN-MODERATE, #60 Ref 0 Prescribed by: CHRISTOS VILLEDA on 04/15/17 0654 Lisinopril 10 Mg Tablet, 10 MG PO DAILY@1200, (Reported) Melatonin/Pyridoxine HCl (B6) 1 Each Tablet, 3 MG PO HS PRN for INSOMNIA, ( Reported) Nitroglycerin 0.4 Mg Tab.subl, 0.4 MG SL UD PRN for CHEST PAIN, (Reported) Sennosides/Docusate Sodium 1 Each Tablet, 1 EA PO BID, #60 Ref 0 Prescribed by: CHRISTOS VILLEDA on 04/15/17 0654 Ubidecarenone 100 Mg Capsule, 100 MG PO BID, (Reported) Warfarin Sodium 1 Mg Tablet, 1 MG PO HS, (Reported) take with 6mg tab for 7mg total Warfarin Sodium 6 Mg Tablet, 6 MG PO HS, (Reported) take with 1mg tab for 7mg total [vaginal cream] , 1 APPLIC VG Q48H@HS, (Reported) Constitutional: no symptoms reported EENTM: no symptoms reported Respiratory: no symptoms reported Cardiovascular: no symptoms reported Gastrointestinal: no symptoms reported Musculoskeletal: see HPI Skin: no symptoms reported Psychiatric/Neurological: No Symptoms Reported Past Rrcejpt-[id number] Hx Patient Social History Alcohol Use: Occasionally Uses Recreational Drug Use: No Smoking Status: Former Smoker Type Used: Cigarettes 2nd Hand Smoke Exposure: No Recent Foreign Travel: No Contact w/Someone Who Travel: No Recent Infectious Disease Expo: No Recent Hopitalizations: No Immunizations Up To Date Date of Pneumonia Vaccine: May 10, 2016 Seasonal Allergies Seasonal Allergies: No Surgeries HX Surgeries: Yes (RIGHT ROTATOR CUFF REPAIR; RIGHT REVERSE TOTAL SHOULDER REPLACEMENT 04/13/17-DR. COOMBS; 3-VESSEL CABG) Surgeries: Cardiac, CABG, Joint Replacement, Orthopedic, Pacemaker Respiratory Hx Respiratory Disorders: Yes Respiratory Disorders: COPD Cardiovascular Hx Cardiac Disorders: Yes (CABG, PACEMAKER) Cardiac Disorders: Atrial Fibrillation, Coronary Artery Disease, High Cholesterol, Hypertension Neurological Hx Neurological Disorders: No Genitourinary Hx Genitourinary Disorders: No Gastrointestinal Hx Gastrointestinal Disorders: No Musculoskeletal Hx Musculoskeletal Disorders: Yes Musculoskeletal Disorders: Arthritis Endocrine Hx Endocrine Disorders: No HEENT HX ENT Disorders: No Cancer Hx Cancer: No Psychosocial Hx Psychiatric Problems: No Integumentary HX Skin/Integumentary Disorder: No Blood Transfusions Hx Blood Disorders: No (ANTICOAGULATION FOR ATRIAL FIBRILLATION) Family Medical History Family Medial History: Abdominal aortic aneurysm G8 BROTHER Alzheimer's disease 19 MOTHER Arthritis G8 BROTHER G8 SISTER Cardiovascular disease 19 FATHER G8 SISTER Myocardial infarction 19 FATHER G8 BROTHER Seizure disorder G8 BROTHER G8 SISTER Physical Exam Vital Signs Vital Sign - Last 12Hours 04/16/17 19:15 Temp 97.1 Pulse 80 Resp 20 B/P (MAP) 134/76 Pulse Ox 97 O2 Delivery Room Air Capillary Refill : Less Than 3 Seconds General Appearance: WD/WN, no apparent distress Cardiovascular: normal peripheral pulses, regular rate, rhythm, no murmur Respiratory: normal breath sounds, no respiratory distress, no accessory muscle use Neurologic/Psychiatric: 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 HAS VERY LIMITED ROM OF RIGHT SHOULDER DUE TO DISCOMFORT--AND STATES SHE WAS INSTRUCTED NOT TO RAISE HER ARM Progress/Results/Core Measures Results/Orders Lab Results Laboratory Tests Test 04/16/17 19:30 Range/Units White Blood Count 7.5 4.3-11.0 10^3/uL Red Blood Count 3.71 L 4.35-5.85 10^6/uL Hemoglobin 11.2 L 11.5-16.0 G/DL Hematocrit 34 L 35-52 % Mean Corpuscular Volume 93 80-99 FL Mean Corpuscular Hemoglobin 30 25-34 PG Mean Corpuscular Hemoglobin Concent 33 32-36 G/DL Red Cell Distribution Width 15.2 H 10.0-14.5 % Platelet Count 191 130-400 10^3/uL Mean Platelet Volume 12.4 H 7.4-10.4 FL Neutrophils (%) (Auto) 66 42-75 % Lymphocytes (%) (Auto) 24 12-44 % Monocytes (%) (Auto) 8 0-12 % Eosinophils (%) (Auto) 2 0-10 % Basophils (%) (Auto) 0 0-10 % Neutrophils # (Auto) 5.0 1.8-7.8 X 10^3 Lymphocytes # (Auto) 1.8 1.0-4.0 X 10^3 Monocytes # (Auto) 0.6 0.0-1.0 X 10^3 Eosinophils # (Auto) 0.1 0.0-0.3 10^3/uL Basophils # (Auto) 0.0 0.0-0.1 10^3/uL Prothrombin Time 17.5 H 12.2-14.7 SEC INR Comment 1.5 H 0.8-1.4 Activated Partial Thromboplast Time 39 H 24-35 SEC Sodium Level 142 135-145 MMOL/L Potassium Level 3.8 3.6-5.0 MMOL/L Chloride Level 106 98-107 MMOL/L Carbon Dioxide Level 27 21-32 MMOL/L Anion Gap 9 5-14 MMOL/L Blood Urea Nitrogen 16 7-18 MG/DL Creatinine 0.72 0.60-1.30 MG/DL Estimat Glomerular Filtration Rate > 60 BUN/Creatinine Ratio 22 Glucose Level 137 H 70-105 MG/DL Calcium Level 9.3 8.5-10.1 MG/DL My Orders Orders - MARCELLUS PINZON DO Saline Lock/Iv-Start (04/16/17 19:25) Basic Metabolic Panel (04/16/17 19:25) Cbc With Automated Diff (04/16/17 19:25) Protime With Inr (04/16/17 19:25) Partial Thromboplastin Time (04/16/17 19:25) Us Venous Upper Ext Rt (04/16/17 19:25) [employer]queria Bandage (04/16/17 20:43) Wound Dressing-Ed (04/16/17 20:43) Vital Signs/I&O Vital Sign - Last 12Hours 04/16/17 04/16/17 19:15 21:05 Temp 97.1 97.1 Pulse 80 70 Resp 20 20 B/P (MAP) 134/76 Pulse Ox 97 99 O2 Delivery Room Air Room Air Blood Pressure Mean: 95 Diagnostic Imaging Comments ULTRASOUND RIGHT ARM-NO DVT, ULNAR VEIN NOT VISUALIZED, PER RADIOLOGIST REPORT @ 2034 Reviewed: Reviewed by Me Departure Communication Progress Notes 2041--SPOKE WITH DR. AGGARWAL, ADVISES TO [place]QU[place]IA WRAP THE ARM, ICE AND ELEVATE AREA AND WEAR SLING, AND FOLLOW UP WITH DR. COOMBS ON WEDNESDAY Impression Impression: Primary Impression: POST OP EDEMA RIGHT ARM Additional Impressions: Status post replacement of right shoulder joint ANTICOAGULATION THERAPY Disposition: HOME, SELF-CARE Condition: Stable Departure-Patient Inst. Referrals: NO,LOCAL PHYSICIAN (PCP) Primary Care Physician DONI COOMBS DO Patient Instructions: DR. COOMBS TOTAL SHOULDER, How to Use a Shoulder Sling , How to Use an Elastic Bandage Add. Discharge Instructions: [place] WRAP TO ARM AND WEAR SLING AT ALL TIMES ELEVATE ARM MUCH POSSIBLE, ACCORDING TO DR. COOMBS'S POST OP INSTRUCTIONS CONTINUE YOUR MEDICATIONS PRESCRIBED FOLLOW UP WITH DR. COOMBS ON WEDNESDAY FOR FURTHER CARE RETURN TO ER IF WORSE All discharge instructions reviewed with patient and/or family. Voiced understanding. MARCELLUS PINZON DO Apr 16, 2017 20:35
[2017-04-16 21:05] VITALS: BP 138/79
== END 2017-04-16 21:05 | disposition home or self-care (01) ==
LOC: EDUNIT# 18:58 → ER 18:59
DX: T81.89XA Other complications of procedures, not elsewhere classified, initial encounter (principal); M79.89 Other specified soft tissue disorders; J44.9 Chronic obstructive pulmonary disease, unspecified; I48.91 Unspecified atrial fibrillation; I25.10 Atherosclerotic heart disease of native coronary artery without angina pectoris; E78.00 Pure hypercholesterolemia, unspecified; I10 Essential (primary) hypertension; M19.90 Unspecified osteoarthritis, unspecified site; Z51.81 Encounter for therapeutic drug level monitoring; Z82.49 Family history of ischemic heart disease and other diseases of the circulatory system; Z87.891 Personal history of nicotine dependence; Z95.1 Presence of aortocoronary bypass graft; Z95.0 Presence of cardiac pacemaker; Z89.231 Acquired absence of right shoulder; Z79.82 Long term (current) use of aspirin; Z79.01 Long term (current) use of anticoagulants
CPT/HCPCS: 36415; 80048; 85025; 85610; 85730